=== PATIENT | female | born 1975 | race Caucasian/White ===

== ENCOUNTER 2023-12-05 07:29 | Outpatient (OUT) | payer OTHER, SELFPAY ==
--- NOTE | 2023-12-05 07:36 | MM_ITS ---
Patient Name: CARL HESTER MR#: [id number] : 1975 Exam Date: 12/05/2023 Ordering Doctor: DR JOE DWYER . RADIOLOGY REPORT PROCEDURE: MM TOMOSYNTHESIS SCREENING BI COMPARISON: MG MAMM SCREEN 3D [facility] CAD, 12/02/2021. MG MAMM SCREEN 3D [facility] CAD, 12/04/2022. INDICATIONS: Screening Calculator Name NCI Breast Cancer Risk Assessment Tool 5 Year Breast Cancer Risk 1.00% Lifetime Breast Cancer Risk 11.40% Personal Breast Cancer No Personal Ovarian Cancer No Treatments None Family Cancers Aunt-maternal with vaginal cancer at age 54; Aunt-maternal with ovarian cancer at age ~82. LOCATION: [facility] BREAST COMPOSITION: Extremely dense, which lowers the sensitivity of mammography. FINDINGS: DIAGNOSTIC CATEGORY 1--NEGATIVE. NO CHANGE FROM COMPARISON ASSESSMENT. RIGHT BREAST: No significant suspicious finding. LEFT BREAST: No significant suspicious finding. RECOMMENDATIONS: ROUTINE MAMMOGRAM AND CLINICAL EVALUATION IN 12 MONTHS. PLEASE NOTE: A NORMAL MAMMOGRAM DOES NOT EXCLUDE THE POSSIBILITY OF BREAST CANCER. A CLINICALLY SUSPICIOUS PALPABLE LUMP SHOULD BE BIOPSIED. Dictated by: Carlos Tang MD on 12/05/2023 at 12:47 Approved by: Carlos Tang MD on 12/05/2023 at 12:54
== END 2023-12-05 07:30 | disposition home or self-care (01) ==
LOC: MAMMO 07:32
PROVIDERS: PCP Family Medicine; Visit Provider Family Medicine
DX: Z12.31 Encounter for screening mammogram for malignant neoplasm of breast (principal); Z80.8 Family history of malignant neoplasm of other organs or systems; Z80.41 Family history of malignant neoplasm of ovary
CPT/HCPCS: 77063; 77067

== ENCOUNTER 2025-01-09 06:57 | Outpatient (OUT) | payer OTHER, SELFPAY ==
--- NOTE | 2025-01-09 06:59 | MM_ITS ---
Patient Name: CARL HESTER MR#: [id number] : 1975 Exam Date: 01/09/2025 Ordering Doctor: DR JOE DWYER . RADIOLOGY REPORT PROCEDURE: MM TOMOSYNTHESIS SCREENING BI COMPARISON: MM TOMOSYNTHESIS SCREENING BI, 12/05/2023. MG MAMM SCREEN 3D [facility] CAD, 12/04/2022. MG MAMM SCREEN 3D [facility] CAD, 12/02/2021. MG MAMM SCREEN [facility] W CAD, 07/20/2017. INDICATIONS: Screening Calculator Name NCI Breast Cancer Risk Assessment Tool 5 Year Breast Cancer Risk 1.10% Lifetime Breast Cancer Risk 11.30% Personal Breast Cancer No Personal Ovarian Cancer No Treatments None Family Cancers Aunt-maternal with vaginal cancer at age 54; Aunt-maternal with ovarian cancer at age ~82. LOCATION: [facility] BREAST COMPOSITION: The breasts are heterogeneously dense,which may obscure small masses. FINDINGS: DIAGNOSTIC CATEGORY 1--NEGATIVE. LEFT BREAST: No significant suspicious finding. RIGHT BREAST: No significant suspicious finding. RECOMMENDATIONS: ROUTINE MAMMOGRAM AND CLINICAL EVALUATION IN 12 MONTHS. PLEASE NOTE: A NORMAL MAMMOGRAM DOES NOT EXCLUDE THE POSSIBILITY OF BREAST CANCER. A CLINICALLY SUSPICIOUS PALPABLE LUMP SHOULD BE BIOPSIED. Dictated by: Moses Mata DO on 01/09/2025 at 10:47 Approved by: Moses Mata DO on 01/09/2025 at 10:48
--- OUTSIDE RECORDS SUMMARY | 2025-01-09 07:00 | XMS_ITS | CCD ---
Author Organization [facility] Care Team Providers Care Barge Captain Name Role Phone Arpan Dwyer Primary Care Provider [phone] DARLENE BETANCOURT Attending Unavailable ARPAN DWYER Primary Care Unavailable JUDIE ., DR KINGSLEY Attending Unavailabl e HEMEFORD ., DR DIAZ Primary Care Unavailable KARASIK ., DR KINGSLEY Admitting Unavailabl e KARLISANDROK ., DR KINGSLEY Consulting Unavailabl e KARLISANDROK ., DR KINGSLEY Consulting Unavailabl e KARLISANDROK ., DR KINGSLEY Attending Unavailabl e HEMEYER ., DR DIAZ Primary Care Unavailable KARASIK ., DR KINGSLEY Admitting Unavailabl e WEST, DR JAMI Stock Consulting Unavailable Arpan Dwyer MD Primary Care Provider Arpan Dwyer MD Primary Care Provider [phone] MERLYN JOYA Attending Unavailable ARPAN DWYER Referring Unavailable ARPAN DWYER Attending Unavailable ARPAN DWYER Attending Unavailable RADHA PASTRANA Attending Unavailable ARPAN DWYER Attending Unavailable Allergies Allergy Classification Reported Allergen(s) Allergy Type Date of Onset Reaction(s) Facility (9 sources) buPROPion Drug Allergy 0 Swelling, Unknown [place], [place] (1 source) meloxicam Drug Allergy 0 [place] (1 source) buPROPion Drug Allergy 6 [facility] (1 source) meloxicam Drug Allergy 0 [facility] (8 sources) meloxicam Drug Allergy 0 Hives, Unknown, Rash [facility] (8 sources) venlafaxine Drug Allergy 2 [facility] (8 sources) Mixed Grasses Propensity to adverse reactions 2 [facility] Medications Current Medications Medication Drug Class(es) Dates Sig (Normalized) Sig (Original) acetaminophen 500 mg oral tablet (1 source) Start: 02-18-2020 take 1 tablet by mouth every six hours as needed for pain acetaminophen (TYLENOL) 500 MG tablet Take 1 tablet by mouth every 6 hours as needed for Pain 60 tablet 0 02/18/2020 Active Start: 02-18-2020 take 1 tablet by gardenia th every six hours as needed for pain acetaminophen (TYLENOL) 500 MG tablet Take 1 tablet by mouth every 6 hours as needed for Pain 60 tablet 0 02/18/2020 Active ascorbic acid 1000 mg oral tablet (8 sources) Vitamin C take 1 tablet by mouth in the morning Ascorbic Acid (vitamin C) 1000 MG tablet Take 1,000 mg by mouth in the morning and 1,000 mg before bedtime. Active azelastine hydrochloride 0.137 mg/actuat metered dose nasal spray (8 sources) Histamine-1 Receptor Antagonist Start: 4 take 2 puff(s) nasal route twice daily as needed azelastine (Astelin) 0.1 % nasal spray Indications: Other allergic rhinitis Administer 2 sprays into each nostril in the morning and 2 sprays before bedtime. 2 puff in each nostril nasally twice a day as needed for 90 days. 90 mL 1 04/04/2024 Active azelaic acid 0.15 mg/mg topical gel (10 sources) Start: 4 azelaic acid (Finacea) 15 % gel Indications: Other rosacea Apply thin layer (1 g ) topically to the face daily before bed. 90 day supply. 150 g 3 08/22/2024 Active Start: 08-15-2024 azelaic acid ( Finacea) 15 % gel Indications: Other rosacea Apply 1 application topically in the morning and 1 application before bedtime. Apply to face externally one time per day at night. 150 g 11 08/15/2024 Active Start: 08-15-2024 azelaic acid ( Finacea) 15 % gel Indications: Other rosacea Apply 1 application topically in the morning and 1 application before bedtime. Apply to face externally one time per day at night. 150 g 11 08/15/2024 Active Start: 06-01-2023 End: 08-15-2024 azelaic acid (Finacea) 15 % gel Indications: Other rosacea Apply 1 application topically in the morning and 1 application before bedtime. Apply to face externally one time per day at night. 50 g 11 06/01/2023 08/15/2024 Discontinued (Reorder) Boric Acid Vaginal 600 MG suppository (8 sources) Boric Acid Vagin al 600 MG suppository Insert 1 suppository into the vagina at bedtime Active busPIRone hydrochloride 15 mg oral tablet (11 sources) Start: 04-04-2024 End: 10-03-2024 take 1 tablet by mouth at breakfast, then take 1 tablet by mouth at lunch, then take 2 tablets by mouth at bedtime busPIRone (Buspar) 15 MG tablet Indications: Sleep disturbance Take orally 1 tablet at breakfast and 1 tablet at lunch, and 2 tablets at bedtime 360 tablet 1 10/03/2024 Active take 1 tablet by mouth three reena es daily busPIRone (BUSPAR) 10 MG tablet Take 10 mg by mouth 3 times daily 0 Active calcium carbonate 1500 mg oral tablet (8 sources) take 1 tablet by mouth once daily calcium carbonate 1500 (600 Ca) MG tablet Take 600 mg by mouth 1 (one) time each day at the same time. Active DULoxetine 60 mg delayed release oral capsule (11 sources) Serotonin and Norepinephrine Reuptake Inhibitor Start: End: take 1 capsule by mouth once daily DULoxetine (Cymbalta) [address] capsule Indications: Recurrent major depressive disorder, in partial remission (HCC) (CMS/HCC) Take 1 capsule (60 mg) by mouth 1 (one) time each day at the same time 90 capsule 1 10/03/2024 04/01/2025 Active take 1 capsule by mouth once jose ly DULoxetine (CYMBALTA) 60 MG extended release capsule Take 60 mg by mouth daily 0 Active ferrous sulfate 325 mg oral tablet (8 sources) take 1 tablet by mouth once daily ferrous sulfate 325 (65 Fe) MG tablet Take 325 mg by mouth 1 (one) time each day at the same time. Active fluticasone propionate 0.05 mg/actuat metered dose nasal spray (8 sources) Corticosteroid Start: 04-04-20 End: 10-01-20 take 2 spray(s) nasal route once daily fluticasone (Flonase) 50 MCG/ACT nasal spray Indications: Other allergic rhinitis Administer 2 sprays into each nostril Daily 48 g 1 04/04/2024 Active ipratropium bromide 0.021 mg/actuat metered dose nasal spray (8 sources) Anticholinergic Start: 04-04-20 End: 10-01-20 ipratropium (Atrovent) 0.03 % nasal spray Indications: Rhinorrhea Administer 2 sprays into each nostril every 12 (twelve) hours 90 mL 1 04/04/2024 Active minocycline 100 mg oral capsule (10 sources) Tetracycline-class Drug Start: 08-15-20 End: 08-15-20 minocycline 100 MG capsule Indications: Other rosacea Take by mouth twice daily. 30 day supply 180 capsule 11 08/15/2024 08/15/2024 Discontinued Start: 06-10-2024 End: 08-15-2024 minocycline 100 MG capsule I ndications: Other rosacea TAKE 1 CAPSULE TWICE A DAY 60 capsule 11 08/15/2024 Active thyroid (fci) 60 mg oral tablet (10 sources) Start: 04-04-2024 End: 04-01-2025 take 1 tablet by mouth in the morning thyroid (PLUGGER WORKER Thyroid) 60 MG tablet Indications: Central hypothyroidism (CMS/HCC) Take 1 tablet (60 mg) by mouth in the morning and 1 tablet (60 mg) in the evening. Take before meals. 180 tablet 1 10/03/2024 04/01/2025 Active Completed/Discontinued Medications Medication Drug Class(es) Dates Sig (Normalized) Sig (Original) ethinyl estradiol 0.03 mg / norethindrone acetate 1.5 mg oral tablet (11 sources) Estrogen Start: 04-04-2024 End: 06-12-2025 take 1 tablet by mouth once daily norethindrone ac-eth estradio (Aurovela 1.5/30) 1.5-30 MG-MCG tablet tablet Indications: Breakthrough bleeding , Endometriosis Take 1 tablet by mouth Daily 63 tablet 3 07/31/2024 10/03/2024 Discontinued (Reorder) 10 ml lidocaine hydrochloride 10 mg/ml injection (1 source) Antiarrhythmic, Amide Local Anesthetic Start: 02-18-2020 End: 02-18-2020 lidocaine 1 % injection 20 mL Problems Active Problems Problem Classification Problem Date Documented Date Episodic/Chronic Endometriosis (11 sources) Endometriosis (clinical); Translations: [Endometriosis, unspecified] Onset: 04-06-2023 07-27-2024 Chronic Immunizations and screening for infectious disease (1 source) Encounter for screening for human papillomavirus (HPV); Translations: [ENC SCREENING HUMAN PAPILLOMAVIRUS] Onset: 12-17-2022 Episodic Malaise and fatigue (10 sources) Fatigue; Translations: [Chronic fatigue, unspecified] Onset: 04-06-2023 04-06-2023 Chronic Menstrual disorders (3 sources) Break-through bleeding; Translations: [Excessive and frequent menstruation with irregular cycle] 07-27-2024 Chronic Mood disorders (10 sources) Recurrent major depression in partial remission; Translations: [Major depressive disorder, recurrent, in partial remission] Onset: 04-06-2023 04-06-2023 Chronic Nonmalignant breast conditions (8 sources) Fibrocystic disease of breast; Translations: [Diffuse cystic mastopathy of unspecified breast] Onset: 04-06-2023 04-06-2023 Chronic Open wounds of head; neck; and trunk (1 source) Laceration of lip ; Translations: [Laceration of frenum of upper lip, initial encounter] Episodic Other and unspecified benign neoplasm (2 sources) Melanocytic nevus of trunk; Translations: [Melanocytic nevi of trunk] 08-15-2024 Episodic Other endocrine disorders (8 sources) Adrenal cortical hypofunction; 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] Onset: 04-06-2023 04-06-2023 Chronic Other inflammatory condition of skin (10 sources) Rosacea; Translations: [Other rosacea] Onset: 04-06-2023 04-06-2023 Chronic Other screening for suspected conditions (not mental disorders or infectious disease) (12 sources) Encounter for screening for malignant neoplasm of cervix; Translations: [Encounter for screening mammogram for malignant neoplasm of breast] Onset: 12-04-2022 Episodic Other upper respiratory disease (8 sources) Chronic laryngitis; Translations: [Chronic laryngitis] Onset: 04-06-2023 04-06-2023 Chronic Other upper respiratory disease (9 sources) Allergic rhinitis; Translations: [Other allergic rhinitis] Onset: 04-06-2023 04-06-2023 Chronic Residual codes; unclassified (1 source) Family history of malignant neoplasm of ovary; Translations: [FAM HX MALIGNANT NEOPLASM OVARY] Onset: 12-05-2022 Episodic Residual codes; unclassified (10 sources) Disturbance in sleep behavior; Translations: [Sleep disorder, unspecified] Onset: 04-06-2023 04-06-2023 Episodic Thyroid disorders (20 sources) Central hypothyroidism; Translations: [Other specified hypothyroidism] Onset: 04-06-2023 04-06-2023 Chronic Thyroid disorders (10 sources) Sick-euthyroid syndrome; Translations: [Sick-euthyroid syndrome] Onset: 04-06-2023 04-06-2023 Episodic Past or Other Problems Problem Classification Problem Date Documented Date Episodic/Chronic Allergic reactions (8 sources) Inflammatory dermatosis; Translations: [Dermatitis, unspecified] Onset: 04-05-2004-05-2023 Episodic Inflammatory diseases of female pelvic organs (8 sources) Chronic vaginitis; Translations: [Subacute and chronic vaginitis] Onset: 04-06-2004-06-2023 Episodic Other nutritional; endocrine; and metabolic disorders (8 sources) Overweight; Translations: [Overweight] Onset: 04-06-2004-06-2023 Episodic Residual codes; unclassified (8 sources) Heterozygous methylenetetrahydrofolate reductase mutation; Translations: [Genetic susceptibility to other disease] Onset: 04-06-2004-06-2023 Episodic Unclassified (2 sources) Patient encounter status 10-06-2024 Results Test Name Value Interpretation Reference Range Facil ity PAP ACOG PANEL 2: 30 to 65on 12-21-2022 . . Normal [facility] Comment on above: Result Comment: Performed at: WB Performed By: #### [id number] #### [facility] [address] [address] [address] Brissa Pruett Age Gdln ACOG Testing 30-65 Normal [facility] Comment on above: Performed By: #### [id number] #### [facility] [address] [place], [place] [address] Dr. Brissa Pruett DIAGNOSIS: Comment Normal [facility] Comment on above: Result Comment: NEGATIVE FOR INTRAEPITHE LIAL LESION OR MALIGNANCY. Performed at: WB Performed By: #### [id number] #### [facility] [address] [address] [address] Brissa Pruett HPV Aptima Negative Normal Negative [facility] Comment on above: Result Comment: This nucleic acid amplif ication test detects fourteen high-risk HPV types (16,18,31,33,35,39,45,51,52,56,58,59,66,68) without differentiation. Performed at: =G Performed By: #### [id number] #### [facility] [address] [address] [address] Brissa Pruett HPV Genotype Reflex Comment Normal [facility] Comment on above: Result Comment: Criteria not met, HPV Ge notype not performed. Performed at: WB Performed By: #### [id number] #### [facility] [address] [place] [address] Dr. Brissa Pruett Methodology: Comment Normal [facility] Comment on above: Result Comment: This liquid based ThinPr ep(R) pap test was screened with the use of an image guided system. Performed at: WB Performed By: #### [id number] #### [facility] [address] [place] [address] Dr. Brissa Pruett Note: Comment Normal [facility] Comment on above: Result Comment: The Pap smear is a scree lacy test designed to aid in the detection of premalignant and malignant conditions of the uterine cervix. It is not a diagnostic procedure and should not be used as the sole means of detecting cervical cancer. Both false-positive and false-negative reports do occur. . Performed at: WB Performed By: #### [id number] #### [facility] [address] [address] [address] Brissa Pruett Performed by: Comment Normal [facility] Comment on above: Result Comment: Pedro Osborne Cytotechno logist (ASCP) Performed at: WB Performed By: #### [id number] #### [facility] [address] [place] [address] Dr. Brissa Pruett Specimen adequacy: Comment Normal [facility] Comment on above: Result Comment: Satisfactory for evaluat ion. Endocervical and/or squamous metaplastic cells (endocervical component) are present. Performed at: WB Performed By: #### [id number] #### [facility] [address] [place], [place] [address] Dr. Brissa Pruett MG MAMM SCREEN 3D MITCHEL CADon 12-04-2022 MG MAMM SCREEN 3D MITCHEL CAD Patient: CARL HESTER Exam Date: 12/04/2022 : 1975 Gender:F Ordering : DR TEETEE DIMAS . Admission #: [id number] Family : DR ARPAN DWYER . Order #: [id number] CLICK HERE TO VIEW EXAM RADIOLOGY REPORT PROCEDURE: MAMMOGRAM SCREENING 3D BILATERAL CAD COMPARISON: MG MAMM SCREEN MITCHEL W CAD, 11/29/2020. MG MAMM SCREEN 3D MITCHEL CAD, 12/02/2021. INDICATIONS: Screening mammography Calculator Name NCI Breast Cancer Risk Assessment Tool 5 Year Breast Cancer Risk 1.00% Lifetime Breast Cancer Risk 11.60% Personal Breast Cancer No Personal Ovarian Cancer No Treatments None Family Cancers Aunt-maternal with vaginal cancer at age 54; Aunt-maternal with ovarian cancer at age 82. LOCATION: [facility] BREAST COMPOSITION: Extremely dense, which lowers the sensitivity of mammography. FINDINGS: DIAGNOSTIC CATEGORY 1--NEGATIVE. NO CHANGE FROM COMPARISON ASSESSMENT. Scattered benign-appearing calcifications are present. Scattered benign-appearing lymph nodes are present. RIGHT BREAST: No significant suspicious finding. LEFT BREAST: No significant suspicious finding. RECOMMENDATIONS: ROUTINE MAMMOGRAM AND CLINICAL EVALUATION IN 12 MONTHS. PLEASE NOTE: A NORMAL MAMMOGRAM DOES NOT EXCLUDE THE POSSIBILITY OF BREAST CANCER. A CLINICALLY SUSPICIOUS PALPABLE LUMP SHOULD BE BIOPSIED. Dictated by: Jami Tang MD on 12/04/2022 at 09:31 Approved by: Jami Tang MD on 12/04/2022 at 09:36 Normal [facility] Free T3on 03-10-2022 FT3 3.84 pg/mL Normal 2.00-4.40 [facility] [employer] Operator Comment on above: Performed By: #### FT4, FT3 #### [facility] [address] [facility] [place] [id number] Free T4on 03-10-2022 Free T4 [Mass/Vol] 1.18 ng/dL Normal 0.80-1.80 [facility] Operator Comment on above: Performed By: #### FT4, FT3 #### [facility] [address] [place], [place] [id number] Q - T3 TOTALon 03-10-2022 T3, TOTAL 129 ng/dL Normal 76-181 [facility] [employer] Operator Comment on above: Order Comment: [facility] 12U Testing performed at: [facility], [employer] [facility], [address], [address] [place], [address], Application Penetration Tester: Cory Sanchez MD [facility] Collection Date/Time: [facility] Results Received Date/Time: [facility] Reported Date/Time: Performed By: #### 8 [id number], [id number] #### [facility] Default [address] [place] [address] Q - T3,REVERSE,LC/MS/MSon T3 REVERSE, LC/MS/MS 13 ng/dL Normal 8-25 [facility] Specialist Comment on above: Order Comment: [facility] 12U Testing performed at: [facility], [employer], [address] [address] , [place], [place], , Application Penetration Tester: Ronald Lord M.D.,PhD [facility] Collection Date/Time: [facility] Results Received Date/Time: [facility] Reported Date/Time: Result Comment: This test was developed and its analytical performance characteristics have been determined by [employer] [place], [place]. It has not been cleared or approved by the U.S. Food and Drug Administration. This assay has been validated pursuant to the CLIA regulations and is used for clinical purposes. Performed By: #### 8 [id number], [id number] #### [facility] [address] [place] [address] Free T3on 02-17-2022 FT3 3.54 pg/mL Normal 2.00-4.40 [facility] [employer] Operator Comment on above: Performed By: #### FT3 #### [facility] [address] [place], [place] [id number] Vital Signs Date Time Vital Sign Value Performing Clinician Indy dumont 02-18-2020 09:34-0400 BMI (Body Mass Index) 26.58 kg/m2 [facility] [place] 02-18-2020 09:34-0400 Body Temperature 98.01 [degF] Darlene Betancourt [place], [place] 02-18-2020 09:34-0400 Body weight 81.65 kg [place], [place] 02-18-2020 09:34-0400 BP Diastolic 82 mm[Hg] [place], [place] 02-18-2020 09:34-0400 BP Systolic 139 mm[Hg] [place], [place] 02-18-2020 09:34-0400 Height 175.3 cm [place], [place] 02-18-2020 09:34-0400 Pulse (Heart Rate) 77 /min [place], [place] 02-18-2020 09:34-0400 Pulse Oximetry 97 % [place], [place] 02-18-2020 09:34-0400 Respiratory Rate 16 /min [place], [place] Encounters Encounter Date Encounter Type Care Provider Facility Start: 01-02-2025 End: 01-02-2025 ambulatory MERLYN H MAHNAZ Not Available Start: 10-06-2024 End: 10-06-2024 Bamboo joyce Dwyer MD Work Phone: [facility] Start: 10-06-2024 End: 10-06-2024 Bamboo flowsjose a Dwyer MD Work Phone: [facility] Start: 10-06-2024 End: 10-06-2024 ambulatory ARPAN DWYER Not Available Start: 10-03-2024 End: 10-06-2024 Office outpatient visit 40 minutes Arpan Dwyer MD Work Phone: [facility] Comment on above: Central hypothyroidi sm (CMS/HCC) (Primary Dx); ESS (euthyroid sick syndrome); Graves disease (CMS/HCC); Chronic fatigue; Recurrent major depressive disorder, in partial remission (HCC) (CMS/HCC); Sleep disturbance; Breakthrough bleeding; Endometriosis; Screening mammogram for breast cancer; Screening for colon cancer Start: 09-26-2024 End: 09-29-2024 Refill Arpan Dwyer MD Work Phone: [facility] Comment on above: Other allergic rhini tis Start: 08-15-2024 End: 08-15-2024 Bamboo flowsheet Radha L Annie PA Work Phone: [facility] Start: 08-15-2024 End: 08-15-2024 Bamboo flowsheet Radha L Annie PA Work Phone: [facility] Start: 08-15-2024 End: 08-15-2024 Office outpatient visit 25 minutes Radha L Annie PA Work Phone: [facility] Comment on above: Melanocytic nevus of trunk (Primary Dx); Other rosacea Start: 08-15-2024 End: 08-15-2024 ambulatory RADHA Grace PASTRANA Not Available Start: 07-27-2024 End: 07-31-2024 Refill Arpan Dwyer MD Work Phone: [facility] Comment on above: Breakthrough bleedin g; Endometriosis Start: 04-04-2024 End: 04-04-2024 ambulatory ARPAN DWYER Not Available Start: 01-29-2024 End: 01-29-2024 ambulatory ARPAN DWYER Not Available Start: 12-13-2022 End: 12-13-[address] TEETEE DIMAS . Facility:[facility] Start: 12-04-2022 End: 12-05-[address] TEETEE DIMAS . Facility:[facility] Start: 02-18-2020 End: 02-18-2020 Emergency department patient visit DARLENE BETANCOURT [facility] Start: 02-18-2020 End: 02-18-2020 Emergency department patient visit Darlene Betancourt Work Phone: [facility] Comment on above: Laceration of frenum of upper lip, initial encounter (Primary Dx) Procedures Date Procedure Procedure Detail Performing Clinician Start: 12-05-2023 Mammography Arpan hernandez MD Work Phone: Plan of Treatment Date Care Activity Detail Author Start: 12-13-2027 Screening for malign ant neoplasm of cervix [facility] Start: 08-21-2025 End: 08-21-2025 Patient encounter procedure 08/21/2025 7:40 AM EDT [facility] [address] [place] [address] Radha [place], [place] [address] [place] [address] [facility] Start: 03-03-2025 End: 04-03-2025 T3, reverse T3, reverse Lab Routine ESS (euthyroid sick syndrome) Chronic fatigue Expected: 03/03/2025 (Approximate), Expires: 04/03/2025 [facility] Work Phone: Comment on above: Expected: 03/03/2025 (Approximate), Expires: 04/03/2025 Start: 03-03-2025 End: 10-03-2025 Thyroxine (T4) free [Mass/volume] in Serum or Plasma T4, free Lab Routine Central hypothyroidism (CMS/HCC) Chronic fatigue Expected: 03/03/2025, Expires: 10/03/2025 [facility] Comment on above: Expected: 03/03/2025 , Expires: 10/03/2025 Start: 03-03-2025 End: 10-03-2025 Triiodothyronine (T3) [Mass/volume] in Serum or Plasma T3 Lab Routine ESS (euthyroid sick syndrome) Chronic fatigue Expected: 03/03/2025, Expires: 10/03/2025 [facility] Comment on above: Expected: 03/03/2025 , Expires: 10/03/2025 Start: 03-03-2025 End: 10-03-2025 Triiodothyronine (T3) Free [Mass/volume] in Serum or Plasma T3, free Lab Routine Central hypothyroidism (CMS/HCC) ESS (euthyroid sick syndrome) Chronic fatigue Expected: 03/03/2025, Expires: 10/03/2025 [facility] Comment on above: Expected: 03/03/2025 , Expires: 10/03/2025 Start: 12-05-2024 Screening for malign ant neoplasm of breast Mammogram [facility] Start: 10-03-2024 End: 12-04-2025 DBT Breast - bilateral screening Bilateral screening mammogram with tomosynthesis Imaging Routine Screening mammogram for breast cancer Expected: 10/03/2024 (Approximate), Expires: 12/04/2025 [facility] Comment on above: Expected: 10/03/2024 (Approximate), Expires: 12/04/2025 Start: 10-03-2024 End: 10-03-2024 Patient encounter procedure [facility] Start: 08-15-2024 End: 08-15-2024 Patient encounter procedure [facility] Comment on above: Arrived Start: 06-29-2024 Influenza vaccination Influenza Vacc ine (#1) [facility] Start: 06-29-2020 Influenza vaccination Flu vacc ine (Season Ended) [place], [place] Start: 1998 Screening for malign ant neoplasm of cervix Pap Smear [facility] Start: 1975 Screening for malign ant neoplasm of colon [facility] Immunizations Immunization Date Immunization Notes Care Provider Fa [facility] 08-28-2021 influenza, injectabl e, quadrivalent, preservative free Arpan Dwyer MD Work Phone: [facility] 08-28-2021 influenza virus vacc ine, unspecified formulation Arpan Dwyer MD Work Phone: [facility] 10-17-2017 tetanus toxoid, redu bean diphtheria toxoid, and acellular pertussis vaccine, adsorbed Arpan Dwyer MD Work Phone: [facility] 07-20-2017 influenza, injectabl e, quadrivalent, preservative free Arpan Dwyer MD Work Phone: [facility] Payers Date Payer Category Payer Unknown [employer]IC [employer] xxxxxxxxx 2020-Present [address] [place] [address] xxxxxxxxx [id number] 2020 Unknown [id number] 2006 Managed Care HMO (unspecified) [id number] 1977 Unknown [id number] 1977 Unknown [id number] 1977 Unknown [id number] 1977 Unknown [id number] 1977 Unknown [id number] 1975 Unknown [id number] 1975 Unknown [id number] 1975 Unknown [id number] 1957 Private Health Insurance [id number] Social History Date Type Detail Facility Start: 02-18-2020 End: 06-01-2023 Tobacco smoking status NHIS Never smoker [place], [place] Start: 02-18-2020 End: 08-15-2024 Alcohol intake Ex-drinker (finding) [facility] Start: 1975 Sex Assigned At Not on file [place], [place] Exposure to SARS-CoV -2 (event) Unable to assess [place], [place] Start: 06-01-2023 Tobacco use and exposure Smoke less tobacco non-user [facility] Start: 04-05-2023 End: 01-29-2024 History of Social function [facility] Start: 04-05-2023 End: 01-29-2024 Humiliation, Afraid, Rape, and Kick questionnaire [HARK] [facility] Within the last year , have you been afraid of your partner or ex-partner? No [facility] How often do you att end christianity or confucianist services? Patient declined [facility] Are you now , , , , never or living with a partner? [facility] How often to you hav e a drink containing alcohol? Never [facility] How hard is it for y ou to pay for the very basics like food, housing, medical care, and heating Not very hard [facility] Do you feel stress - tense, restless, nervous, or anxious, or unable to sleep at night because your mind is troubled all the time - these days [OSQ] To some extent [facility] (I/We) worried wheth er (my/our) food would run out before (I/we) got money to buy more. Never true [facility] The food that (I/we) bought just didn't last, and (I/we) didn't have money to get more. Often true [facility] Start: 10-04-2023 Alcohol Comment caffeine intake : so da [facility] Start: 01-10-2023 Gender identity Identifies as female gender (finding) [facility] Start: 10-06-2024 Alcoholic beverage intake Life time non-drinker (finding) [facility] History of Present illness Narrative 10-03-2024 Arpan Dwyer MD - 10/03/2024 9:00 AM EST Note Date & Type Note Facility 10-03-2024 History of Presen t illness Narrative Images from the original note were not included. Patient ID: Carl Hester is a 49 y.o. female who presents for: She has seen outside of normal office hours as I understand this is the only day she can get off from work. She has been in this practice for many years and I do wish to accommodate her. Thyroid: Pt here today to review his/hers thyroid labs and any medication changes needed. Fatigue: Present, Unchanged Weight Gain: Absent Inability to lose weight: Present, Unchanged Hair Changes: Present He/She is following the thyroid diet: Good He/She are taking medications as directed: Good He/She are exercising at least 3 days out of the week for 30 minutes or more: Good Depression Patient complains of depression. He/she complains of depressed mood and fatigue. Onset was approximately several years ago. Symptoms have been stable since that time. Current symptoms include: depressed mood and fatigue. Patient denies recurrent thoughts of . Family history significant for alcoholism and depression. Possible organic causes contributing are: none. Risk factors: positive family history in father and previous episode of depression. Previous treatment includes medication. He complains of the following side effects from the treatment: none. Worsens in the winter. Also requesting refill OCP. Review of Systems Breasts: Negative for breast mass and breast discharge. Respiratory: Negative for shortness of breath. Cardiovascular: Negative for chest pain. Gastrointestinal: Negative for abdominal pain. Psychiatric/Behavioral: Negative for sleep disturbance. Objective Appearance: Well-groomed, in no acute distress Abnormal body movements: None Affect: Appropriate and appears to be full range Attention: Good Attitude: Cooperative Degree of awareness of surroundings: Grossly within normal limits Impulse control: Appears to be good Insight: Appears to be good Fund of knowledge; adequate Judgment: Appears to be adequate Perceptual disorders: No perceptual disorders noted Psychomotor activity: Within normal range Speech: Clear, normal variability and rate Thought content: Unremarkable Visit Vitals OB Status Having periods Smoking Status Never Allergies Allergen Reactions Mixed Grasses Other Reaction(s): Unknown Bupropion Swelling and Unknown Meloxicam Hives, Unknown and Rash Venlafaxine Hcl Current Outpatient Medications on File Prior to Visit Medication Sig Dispense Refill Ascorbic Acid (vitamin C) 1000 MG tablet Take 1,000 mg by mouth in the morning and 1,000 mg before bedtime. azelaic acid (Finacea) 15 % gel Apply thin layer (1 g ) topically to the face daily before bed. 90 day supply. 150 g 3 azelastine (Astelin) 0.1 % nasal spray Administer 2 sprays into each nostril in the morning and 2 sprays before bedtime. 2 puff in each nostril nasally twice a day as needed for 90 days. 90 mL 1 Boric Acid Vaginal 600 MG suppository Insert 1 suppository into the vagina at bedtime calcium carbonate 1500 (600 Ca) MG tablet Take 600 mg by mouth 1 (one) time each day at the same time. ferrous sulfate 325 (65 Fe) MG tablet Take 325 mg by mouth 1 (one) time each day at the same time. minocycline 100 MG capsule TAKE 1 CAPSULE TWICE A DAY 60 capsule 11 fluticasone (Flonase) 50 MCG/ACT nasal spray Administer 2 sprays into each nostril Daily 48 g 1 ipratropium (Atrovent) 0.03 % nasal spray Administer 2 sprays into each nostril every 12 (twelve) hours 90 mL 1 [DISCONTINUED] busPIRone (Buspar) 15 MG tablet Take orally 1 tablet at breakfast and 1 tablet at lunch, and 2 tablets at bedtime 360 tablet 1 [DISCONTINUED] DULoxetine (Cymbalta) [address] capsule Take 1 capsule (60 mg) by mouth 1 (one) time each day at the same time 90 capsule 1 [DISCONTINUED] norethindrone ac-eth estradio (Aurovela 1.5/30) 1.5-30 MG-MCG tablet tablet Take 1 tablet by mouth Daily 63 tablet 3 [DISCONTINUED] thyroid (PLUGGER WORKER Thyroid) 60 MG tablet Take 1 tablet (60 mg) by mouth in the morning and 1 tablet (60 mg) in the evening. Take before meals. 180 tablet 1 No current facility-administered medications on file prior to visit. 1. Central hypothyroidism (CMS/HCC) (Primary) In prescribing a renewal to their current medication, consideration of the following encompasses moderate decision making; the current prescriptions and supplements, the current allergies and medication intolerances, current medical conditions, and potential drug interactions. Any changes to risks, benefits, and reason for renewing their current medication due to the above were discussed. The patient was given a chance to ask questions today and all questions were answered. The patient is to contact us if any other questions arise or if any problems occur. (Utilizing the original guidelines or the 2020 office/outpatient code guidelines for selecting the level of E/M service, In both sets of guidelines, prescription drug management appears in the moderate medical decision making (MDM) row. Neither the original guidelines nor the new guidelines state that a new prescription or change is needed in order to credit prescription drug management) - thyroid (PLUGGER WORKER Thyroid) 60 MG tablet; Take 1 tablet (60 mg) by mouth in the morning and 1 tablet (60 mg) in the evening. Take before meals. Dispense: 180 tablet; Refill: 1 - T3, free; Future - T4, free; Future - T3, free - T4, free 2. ESS (euthyroid sick syndrome) This is a complex chronic problem, stable, to goal; management requires moderate decision making I reviewed diet and exercise with the patient. I discussed the patient's current psychosocial and physical condition and the stress impact upon them. I reviewed the multiple unique laboratories and explained the results to the patient. The patient has been re-educated concerning the above diagnoses and that the treatment for some of these may not be considered the standard of care, including TSH suppression when utilized. The patient has been re-educated and instructed concerning medication timing, diet, exercise, and stress reduction as appropriate. I reviewed the patient's current prescriptions and discussed the possibilities of medication renewals, adjustments, new medication start, or stop medication as appropriate. The patient has been instructed to follow up and bring a diet and exercise log, obtain the unique laboratory tests ordered, and the importance of follow up and compliance. The patient was given a chance to ask questions today and all questions were answered. The patient is to contact us if any other questions arise or if any problems occur. - T3, reverse; Future - T3; Future - T3, free; Future - T3, reverse - T3 - T3, free 3. Graves disease (CMS/HCC) No extrathyroidal signs of disease 4. Chronic fatigue Chronic problem, stable, complex in nature with moderate decision making. I discussed with the patient and/or their customer relations representative, their fatigue issues. We discussed how this is improved significantly. We discussed that the patient will almost certainly need to continue to make lifestyle changes including diet, sleep, exercise, and stress management as appropriate. We discussed how this is almost always a multifactorial problem. We further discussed how we will continue to search for refinements in their current treatments or evaluation for further disease processes and then support or treat them as appropriate. We discussed how we can frequently improve the symptoms, but may not be able to completely cure or resolve the issue. The patient was given a chance to ask questions and all questions were answered. - T3, reverse; Future - T3; Future - T3, free; Future - T4, free; Future - T3, reverse - T3 - T3, free - T4, free 5. Recurrent major depressive disorder, in partial remission (HCC) (CMS/HCC) Chronic problem, stable this is her rough season. She seems to be doing fairly. - DULoxetine (Cymbalta) [address] capsule; Take 1 capsule (60 mg) by mouth 1 (one) time each day at the same time Dispense: 90 capsule; Refill: 1 6. Sleep disturbance Chronic problem, stable, sleeping well. She works director of content marketing. - busPIRone (Buspar) 15 MG tablet; Take orally 1 tablet at breakfast and 1 tablet at lunch, and 2 tablets at bedtime Dispense: 360 tablet; Refill: 1 7. Breakthrough bleeding Resolved with control pill originally started by her balancer left the area - norethindrone ac-eth estradio (Aurovela 1.5/30) 1.5-30 MG-MCG tablet tablet; Take 1 tablet by mouth Daily Dispense: 63 tablet; Refill: 3 8. Endometriosis As above - norethindrone ac-eth estradio (Aurovela 1.5/30) 1.5-30 MG-MCG tablet tablet; Take 1 tablet by mouth Daily Dispense: 63 tablet; Refill: 3 9. Screening mammogram for breast cancer - Bilateral screening mammogram with tomosynthesis; Future 10. Screening for colon cancer We also discussed colon cancer screening as it is in active care gap. We have sent a referral for colonoscopy. documented in this encounter [facility] History of Present illness Narrative 08-15-2024 NOLAN Duff - 08/15/2024 8:10 AM EDT Note Date & Type Note Facility 08-15-2024 History of Presen t illness Narrative Images from the original note were not included. Skin Check Location: Patient requests a full body skin examination Dermatologic history: no history of skin cancer, no history of atypical moles Last visit: 1 year ago Established patient Follow up Diagnosis: Rosacea Location: face Last visit: 1 year ago Symptoms: none Status: flaring right now, normally its good Current treatment: Azelaic acid 15% gel Minocycline 100 mg bid All pertinent medical history, medications, and allergies were reviewed. General Exam: alert, oriented to person, place, and time, normal affect, well appearing Unaccompanied Scalp, Examined Right leg Examined Head, Face Examined Left leg Examined Neck Examined Right foot Examined Chest Examined Left foot Examined Back Examined Buttocks Examined Abdomen Examined Digits,nails: Examined Right arm Examined Left arm Examined Lymphatics: Not examined Hands Examined 1. Melanocytic nevus of trunk Scattered benign appearing, regular brown to light brown melanocytic papules and macules with similar morphology Counseled regarding these benign growths. Rarely, a nevus can develop into malignant melanoma, so any changing nevi should be promptly re-evaluated. 2. Other rosacea Head - Anterior (Face) Mild erythema on the nose today. See photo Discussed that the February of 2024 AAD updated acne guidelines have put a conditional recommendation on Minocycline for use of treating acne due to the potential of rare more serious side effects than with use of Doxycycline. Discussed patient may continue with Minocycline if they desire, understanding that there are rare more serious side effects. Patient chose to stay on Minocycline 100 mg BID at this time. Related Medications azelaic acid (Finacea) 15 % gel Apply 1 application topically in the morning and 1 application before bedtime. Apply to face externally one time per day at night. minocycline 100 MG capsule Take by mouth twice daily. 30 day supply Next Visit: 1 year documented in this encounter [facility] Telephone encounter Note 07-31-2024 Telephone Encounter - Arpan Dwyer MD - 07/31/2024 4:58 PM EDT Note Date & Type Note Facility 07-31-2024 Telephone encount er Note Prescription sent [facility] Note 07-31-2024 Telephone Encounter - Arpan Dwyer MD - 07/31/2024 4:58 PM EDTTelephone Encounter - Sinai Avendano MA - 07/31/2024 3:41 PM EDT Note Date & Type Note Facility 07-31-2024 Miscellaneous Notes Formattin g of this note might be different from the original. Prescription sent Pt called and stated in VM she needed a refill of her BC documented in this encounter [facility] Telephone encounter Note 07-31-2024 Telephone Encounter - Sinai NievesLASHAE posey - 07/31/2024 3:41 PM EDT Note Date & Type Note Facility 07-31-2024 Telephone encount er Note Pt called and stated in VM she needed a refill of her BC [facility] Evaluation note Note Date & Type Note Facility Evaluation note Diagnosis Breakthrough bleeding Metrorrhagia Endometriosis Endometriosis, site unspecified documented in this encounter [facility] Evaluation note Note Date & Type Note Facility Evaluation note Diagnosis Melanocytic nevus of trunk- Primary Benign neoplasm of skin of trunk, except scrotum Other rosacea documented in this encounter [facility] Evaluation note Note Date & Type Note Facility Evaluation note Diagnosis Other allergic rhinitis documented in this encounter [facility] Evaluation note Note Date & Type Note Facility Evaluation note Diagnosis Central hypothyroidism (CMS/HCC)- Primary Unspecified hypothyroidism ESS (euthyroid sick syndrome) Euthyroid sick syndrome Graves disease (CMS/HCC) Toxic diffuse goiter without mention of thyrotoxic crisis or storm Chronic fatigue Other malaise and fatigue Recurrent major depressive disorder, in partial remission (HCC) (CMS/HCC) Sleep disturbance Unspecified sleep disturbance Breakthrough bleeding Metrorrhagia Endometriosis Endometriosis, site unspecified Screening mammogram for breast cancer Screening for colon cancer Special screening for malignant neoplasms, colon documented in this encounter [facility] Discharge Instructions * Attachments The following attachments cannot be sent through Care Everywhere. * Lacerations: Stitches (Latvian) documented in this encounter Assessments Diagnosis Laceration of frenum of upper lip, initial encounter Advance Directives No Advanced Directives Records FoundDocuments on File Type Date Recorded Patient Breakfast Hostess Expl anation Advance Directives and Living Will Power of Transmission Assembler Summary Purpose Family History No Family History Records FoundNo Family History Records FoundNo Family History Records FoundNo Family History Records Found Additional Source Comments Reason for Visit (unrecogniz ed section and content) Reason Comments Laceration Reason Onset Date Comments Med Refill 07/27/2024 Reason Comments Skin Check Follow-up Reason Comments Med Refill Reason Comments Hypothyroidism Depression INFORMATION SOURCE (unrecogn ized section and content) DATE CREATED AUTHOR 02/18/2020 [facility] DATE CREATED AUTHOR AUTHOR'S ORGANIZ ATION 03/18/2022 [facility] dical Specialist DATE CREATED AUTHOR AUTHOR'S ORGANIZ ATION 12/22/2022 [facility] DATE CREATED AUTHOR AUTHOR'S ORGANIZ ATION 01/04/2025 [facility] d[facility] Specialists EPIC Care Teams (unrecognized sec tion and content) Barge Captain Relationship Specialty Start Date End Date Arpan Dwyer MD [address] [place] [address] PCP - General Family Medicine 04/05/23 Barge Captain Relationship Specialty Start Date End Date Arpan Dwyer MD [address] [place] [address] PCP - General Family Medicine 04/05/23 Barge Captain Relationship Specialty Start Date End Date Arpan Dwyer MD [address] [place] [address] PCP - General Family Medicine 04/05/23 Barge Captain Relationship Specialty Start Date End Date Arpan Dwyer MD (Fax) PCP - General Family Medicine 04/05/23 Barge Captain Relationship Specialty Start Date End Date Arpan Dwyer MD (Fax) PCP - General Family Medicine 04/05/23 Barge Captain Relationship Specialty Start Date End Date Arpan Dwyer MD (Fax) PCP - General Family Medicine 04/05/23 FOR RECORDS PERTAINING TO PATIENTS WHO ARE OR HAVE BEEN ENROLLED IN A CHEMICAL DEPENDENCY/SUBSTANCEABUSE PROGRAM, SOME INFORMATION MAY BE OMITTED. This clinical summary was aggregated from multiple sources. Caution should be exercised in using it in the provision of clinical care. This summary normalizes information from multiple sources, and as a consequence, information in this document may materially change the coding, format and clinical context of patient data. In addition, data may be omitted in some cases. CLINICAL DECISIONS SHOULD BE BASED ON THE PRIMARY CLINICAL RECORDS. [facility]. provides no warranty or guarantee of the accuracy or completeness of information in this document.
== END 2025-01-09 06:58 | disposition home or self-care (01) ==
LOC: MAMMO 06:57
PROVIDERS: PCP Family Medicine; Visit Provider Family Medicine
DX: Z12.31 Encounter for screening mammogram for malignant neoplasm of breast (principal); Z80.41 Family history of malignant neoplasm of ovary; Z80.8 Family history of malignant neoplasm of other organs or systems
CPT/HCPCS: 77063; 77067